=== PATIENT | female | born 1970 | race Caucasian/White ===

== ENCOUNTER 2021-01-10 10:39 | Emergency (ER) | payer MEDICAID ==
[~2021-01-10] VITALS: Ht 162.6 cm; Wt 96.0 kg
[2021-01-10 10:43] VITALS: BP 176/83
[2021-01-10] MEDS ORDERED: KETOROLAC TROMETHAMINE 30 MG/ML VIAL IM ONE (12:30)
== END 2021-01-10 13:13 | disposition home or self-care (01) ==
LOC: EMS 10:39
DX: M54.41 Lumbago with sciatica, right side (principal); Z88.0 Allergy status to penicillin; Z87.891 Personal history of nicotine dependence
CPT/HCPCS: 96372; 99283; J1885

== ENCOUNTER 2021-01-15 08:54 | Emergency (ER) | payer MEDICAID ==
[~2021-01-15] VITALS: Ht 160 cm; Wt 95.5 kg
[2021-01-15] MEDS ORDERED: LIDOCAINE 5% TRANSDERMAL PATCH TD ONE (09:30)
[2021-01-15] MEDS ORDERED: IBUPROFEN 600 MG TABLET PO ONE (09:30)
[2021-01-15 09:38] VITALS: BP 131/80
== END 2021-01-15 09:38 | disposition home or self-care (01) ==
LOC: EMS 09:01
DX: M54.16 Radiculopathy, lumbar region (principal); Z87.891 Personal history of nicotine dependence
CPT/HCPCS: 99283